=== PATIENT | female | born 1945 | race Hispanic/Latino ===

== ENCOUNTER → 2022-09-07 | Outpatient (CLI) | payer MEDICARE | END | disposition home or self-care (01) | LOC: SHCH 15:10 | PROVIDERS: ATTEND Student in an Organized Health Care Education/Training Program | DX: I11.9 Hypertensive heart disease without heart failure (principal); R07.9 Chest pain, unspecified | CPT/HCPCS: 93306 ==

== ENCOUNTER → 2022-12-27 | Outpatient (CLI) | payer MEDICARE ==
[2022-12-27 12:30] LABS: CREATININE 1.2 mg/dL (0.5-1.5); POTASSIUM 3.8 mmol/L (3.5-5.1)
== END | disposition home or self-care (01) ==
LOC: LAB 08:29
PROVIDERS: ATTEND Student in an Organized Health Care Education/Training Program
DX: I10 Essential (primary) hypertension (principal)
CPT/HCPCS: 36415; 80048

== ENCOUNTER → 2022-12-30 | Outpatient (CLI) | payer MEDICARE ==
[~2022-12-30] MED LIST: IOHEXOL 350 MG/ML 100ML INFUS..BTL IV ONE; METOPROLOL TARTRATE 1 MG/ML 5ML VIAL IV ONE
== END | disposition home or self-care (01) ==
LOC: EDUNIT# 09-09 09:30 → RAH 08:24
PROVIDERS: ATTEND Student in an Organized Health Care Education/Training Program
DX: R07.9 Chest pain, unspecified (principal)
CPT/HCPCS: 75574; J3490; Q9967